=== PATIENT | female | born 1930 | race Caucasian/White ===

== ENCOUNTER → 2017-01-11 | Outpatient (CLI) | payer OTHER, BC ==
[~2017-01-11] MED LIST: ALEVE220 M1 PO; BENEFIBER1 EAC1 PO; BENEFIBER98 GM PO; COUMADIN 2 MG TA2 M1 PO; LISINOPRIL20 MG PO; NORCO 5-325 TA1 EACH PO
== END ==
LOC: RAD 01:34
DX: Z12.31 Encounter for screening mammogram for malignant neoplasm of breast (principal)

== ENCOUNTER → 2018-01-24 | Outpatient (CLI) | payer OTHER, BC | LOC: RAD 01:56 | DX: Z12.31 Encounter for screening mammogram for malignant neoplasm of breast (principal) ==

== ENCOUNTER → 2019-02-21 | Outpatient (CLI) | payer OTHER, BC | LOC: RAD 02:49 | DX: Z12.31 Encounter for screening mammogram for malignant neoplasm of breast (principal) ==

== ENCOUNTER → 2020-02-27 | Outpatient (CLI) | payer OTHER, BC | LOC: BC 08:19 | PROVIDERS: ATTEND Neuromusculoskeletal Medicine & OMM | DX: Z12.31 Encounter for screening mammogram for malignant neoplasm of breast (principal) ==

== ENCOUNTER 2020-09-02 14:56 | Emergency (ER) | payer OTHER, BC ==
[~2020-09-02] VITALS: Ht 152.4 cm; Wt 79.5 kg
[2020-09-02 15:50] LABS: HEMOGLOBIN 13.6 gm/dL (12.0-15.0); MCH 29.5 pg (26.0-34.0)
[2020-09-02 15:51] LABS: HEMATOCRIT 41.5 % (37.0-47.0); MCHC 32.7 g/dL (28.0-37.0); MCV 90.2 fL (80.0-100.0); RBC 4.6 mil/uL (4.20-5.00); RDW 15.4 % (10.5-14.5); WBC 8.7 thou/uL (4.0-11.0)
[2020-09-02 16:10] LABS: ANION GAP 11 mmol/L (7-16); BUN 21 mg/dL (7-18); CALCIUM 9.7 mg/dL (8.5-10.1); CHLORIDE 102 mmol/L (98-107); CO2 27 mmol/L (21-32); CREATININE 1.1 mg/dL (0.6-1.0); GLUCOSE 116 mg/dL (74-106); POTASSIUM 4.1 mmol/L (3.5-5.1); SODIUM 140 mmol/L (136-145)
[2020-09-02 16:20] LABS: ALBUMIN 3.6 g/dL (3.4-5.0); SGOT 20 U/L (15-37); SGPT 17 U/L (14-59); TOTAL BILIRUBIN 0.4 mg/dL (0.2-1.0); TOTAL PROTEIN 8.1 g/dL (6.4-8.2); TROPONIN-I <0.06 ng/mL (<0.06)
[2020-09-02 16:34] LABS: URINE BILIRUBIN NEGATIVE (Negative); URINE BLOOD 1+ (Negative); URINE CLARITY CLEAR; URINE COLOR YELLOW; URINE GLUCOSE-RANDOM* NEGATIVE (Negative); URINE KETONES TRACE (Negative); URINE LEUKOCYTES-REFLEX NEGATIVE (Negative); URINE NITRITE-REFLEX NEGATIVE (Negative); URINE PROTEIN (DIPSTICK) NEGATIVE (Negative); URINE UROBILINOGEN 0.2 E.U./dl (0.2-1.0)
[2020-09-02 16:41] LABS: SQUAMOUS >10 Many /LPF (0-3)
[2020-09-02 16:42] LABS: URINE RBC 3-10 Few /HPF (0-2)
[2020-09-02 16:43] LABS: BACTERIA-REFLEX 1-9 Few /HPF (None Seen); CASTS None Seen /LPF (None Seen); CRYSTALS None Seen /LPF (None Seen); MUCUS 0-3 Light strn/LPF (None Seen); URINE WBC-REFLEX 0-5 Rare /HPF (0-5)
[2020-09-02] MEDS ORDERED: LIDODERM1 EACH TOP (17:04)
[2020-09-02 17:06] VITALS: BP 120/65
--- NOTE | 2020-09-03 07:14 | EKG ---
[place] [address] [facility] [place] [place] [address] ELECTROCARDIOGRAM REPORT Name: DUNCAN BRONSON Room #: 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 : 1930 Requested By: Mirella Kidd Order Number: [id number] MD: Angelito Morejon Measurements Intervals [place] Rate: 65 P: 102 NV: QRS: -16 QRSD: 93 T: 36 QT: 409 QTc: 426 Interpretive Statements Sinus bradycardia Atrial premature complexes in couplets Second deg AVB, [place] I ([place]) Borderline left axis deviation Abnormal R-wave progression, early transition Compared to ECG 04/24/2014 10:48:04 Atrial premature complex(es) now present Sinus rhythm no longer present Left ventricular hypertrophy no longer present Electronically Signed On 09-03-2020 7:14:43 HEADER OPERATOR by Angelito Morejon [email or web address] <ELECTRONICALLY SIGNED> By: Angelito Moreojn MD, FAC 09/03/20 0714 1643 1643 Angelito Morejon MD, FAC /EPI
== END 2020-09-02 17:06 | disposition home or self-care (01) ==
LOC: ER 14:56
PROVIDERS: Nurse Practitioner Family
DX: S20.222A Contusion of left back wall of thorax, initial encounter (principal); I10 Essential (primary) hypertension; Z79.01 Long term (current) use of anticoagulants; Z79.899 Other long term (current) drug therapy; Z88.0 Allergy status to penicillin; W18.39XA Other fall on same level, initial encounter; Y93.89 Activity, other specified; Y92.89 Other specified places as the place of occurrence of the external cause; Y99.8 Other external cause status

== ENCOUNTER 2020-10-06 15:52 | Emergency (ER) | payer OTHER, BC ==
[~2020-10-06] VITALS: Ht 160 cm; Wt 79.4 kg
[~2020-10-06 15:52] MED LIST changes: +LIDODERM1 EACH TOP
[2020-10-06 17:27] LABS: URINE BILIRUBIN NEGATIVE (Negative); URINE BLOOD 1+ (Negative); URINE CLARITY CLEAR; URINE COLOR YELLOW; URINE GLUCOSE-RANDOM* NEGATIVE (Negative); URINE KETONES NEGATIVE (Negative); URINE LEUKOCYTES-REFLEX TRACE (Negative); URINE NITRITE-REFLEX NEGATIVE (Negative); URINE PROTEIN (DIPSTICK) NEGATIVE (Negative); URINE SPECIFIC GRAVITY 1.015 (1.005-1.035); URINE UROBILINOGEN 0.2 E.U./dl (0.2-1.0)
[2020-10-06 17:33] LABS: BACTERIA-REFLEX None Seen /HPF (None Seen); CRYSTALS None Seen /LPF (None Seen); SQUAMOUS None Seen /LPF (0-3); URINE RBC 0-2 Rare /HPF (0-2); URINE WBC-REFLEX None Seen /HPF (0-5)
[2020-10-06 17:41] LABS: ABSOLUTE NEUTROPHILS 6.6 thou/uL (1.4-8.2); BASOPHILS 0.6 % (0.0-2.0); EOSINOPHILS 1.3 % (0.0-3.0); HEMATOCRIT 38.2 % (37.0-47.0); HEMOGLOBIN 12.8 gm/dL (12.0-15.0); LYMPHOCYTES 13.9 % (24.0-44.0); MCH 30.2 pg (26.0-34.0); MCHC 33.6 g/dL (28.0-37.0); MONOCYTES 6.3 % (1.0-8.0); PLATELET COUNT 263 thou/uL (150-400); POLYS 77.9 % (36.0-66.0); RBC 4.25 mil/uL (4.20-5.00); RDW 15.3 % (10.5-14.5); WBC 8.5 thou/uL (4.0-11.0)
[2020-10-06 17:46] LABS: ANION GAP 7 mmol/L (7-16); BUN 18 mg/dL (7-18); CALCIUM 9.5 mg/dL (8.5-10.1); CHLORIDE 103 mmol/L (98-107); CO2 30 mmol/L (21-32); CREATININE 1.2 mg/dL (0.6-1.0); GLUCOSE 120 mg/dL (74-106); POTASSIUM 4.1 mmol/L (3.5-5.1); SODIUM 140 mmol/L (136-145)
[2020-10-06 17:57] LABS: TROPONIN-I <0.06 ng/mL (<0.06)
[2020-10-06 20:17] VITALS: BP 126/64
--- NOTE | 2020-10-07 06:59 | EKG ---
[place] [address] [address] [facility] [place] [address] ELECTROCARDIOGRAM REPORT Name: DUNCAN BRONSON Room #: [facility]#: [id number] Admission: 10/06/20 Attend Phys: Discharge: 10/06/20 Date of : 32 Report #: [id number] [facility] ED Test Date: 2020-10-06 Test Time: 17:45:44 Pat Name: DUNCAN BRONSON Department: Room: Gender: F Supervisor [employer]: TEJINDER : 1930 Requested By: Chula Barrera Order Number: [id number] MD: Angelito Morejon Measurements Intervals [place] Rate: 90 P: 0 LA: 274 QRS: -22 QRSD: 90 T: 28 QT: 343 QTc: 420 Interpretive Statements Sinus rhythm Sinus pause Prolonged LA interval Abnormal R-wave progression, early transition Left ventricular hypertrophy Compared to ECG 09/02/2020 16:43:23 Sinus pause or arrest now present First degree AV block now present Left ventricular hypertrophy now present Sinus bradycardia no longer present Atrial premature complex(es) no longer present Electronically Signed On 10-07-2020 6:59:19 CDT by Angelito Morejon [email or web address] <ELECTRONICALLY SIGNED> By: Angelito Morejon MD, FAC 10/07/20 0659 1745 1745 Angelito Morejon MD, [facility] /EPI
== END 2020-10-06 20:24 | disposition home or self-care (01) ==
LOC: ER 15:52
PROVIDERS: Emergency Medicine
DX: E86.0 Dehydration (principal); M79.605 Pain in left leg; I10 Essential (primary) hypertension; Z90.49 Acquired absence of other specified parts of digestive tract; Z79.01 Long term (current) use of anticoagulants; Z79.899 Other long term (current) drug therapy; Z88.0 Allergy status to penicillin